=== PATIENT | female | born 1970 | race Caucasian/White ===

== ENCOUNTER 2017-03-18 05:51 | Emergency (ER) | payer BC ==
[2017-03-18] MEDS ORDERED: 0.9 % SODIUM CHLORIDE 1000ML 1,000 ML IV ONE (05:55)
[2017-03-18] MEDS ORDERED: ONDANSETRON HCL IV 4 MG/2 ML VIAL IVP ONE (05:55)
[2017-03-18] MEDS ORDERED: PROMETHAZINE HCL 25 MG in 0.9 % SODIUM CHLORIDE 100ML 50 ML IVP ONE (06:06)
[2017-03-18 06:08] LABS: BASO % 0.2 % (0-6); HEMATOCRIT 46.6 % (35.0-47.0); HEMOGLOBIN 15.6 gm/dl (11.6-16.0); LYMPH % 13.2 % (16-45); MEAN CORPUSCULAR HGB CONC 33.5 g/dl (32-36); MEAN PLATELET VOLUME 8.5 fl (7.4-10.4); MONO % 9.6 % (0-9); PLATELET COUNT 412 K/uL (130-400); RED BLOOD COUNT 5.68 M/uL (3.80-5.40); RED CELL DISTRIBUTION WIDTH 13.5 % (11.5-14.5); WHITE BLOOD COUNT W/O DIFF 8.2 K/uL (4.2-12.2)
[2017-03-18 06:09] LABS: MEAN CORPUSCULAR HEMOGLOBIN 27.4 pg (27-33)
[2017-03-18] MEDS ORDERED: KETOROLAC 30 MG/ML VIAL IVP ONE (06:09)
--- NOTE | 2017-03-18 06:12 | Emergency Department Record ---
History of Present Illness - General Chief complaint: Nausea, Vomiting, Diarrhea Stated complaint: VOMITING Time Seen by Provider: 03/18/17 06:05 Source: Patient Limitations: No limitations - History of Present Illness Initial comments: 46 yo female presents to ED with a CC of nausea and vomiting symptoms for the past 2-3 days. Patient denies fevers or abdominal pain symptoms, but reports numerous family members with similar symptoms. Patient denies loose stools or blood in the stool. Patient reports history of fribromyalgia and chronic back pain at her baseline. MD complaint: Nausea, Vomiting Onset/Timin -: Days(s) Associated Abdominal Pain: No Severity: Moderate Quality: Aching Consistency: Constant Improves with: None Worsens with: Vomiting Associated Symptoms: Denies other symptoms - Related Data Home Medications Medication Instructions Recorded Confirmed Last Taken Chlorthalidone 25 mg PO DAILY 10/12/14 03/18/17 03/16/17 Omeprazole/Sodium Bicarbonate 1 each PO DAILY 10/12/14 03/18/17 03/17/17 [Zegerid 40 mg Capsule] Ergocalciferol (Vitamin D2) 2,000 unit PO QD tab 12/03/16 03/18/17 03/16/17 [Vitamin D2] Potassium Gluconate [Potassium] 99 mg PO DAILY tab 12/03/16 03/18/17 03/16/17 Previous Rx's Medication Instructions Recorded Promethazine HCl [Phenergan] 25 mg PO Q6H PRN #20 tablet 03/18/17 Allergies Allergy/AdvReac Type Severity Reaction Status Date / Time baclofen [BACLOFEN] Allergy Unknown RASH Unverified 12/03/16 08:43 morphine [MORPHINE] Allergy Unknown MIGRAINES Unverified 12/03/16 08:43 Review of Systems Constitutional: Denies: Chills, Fever, Malaise, Night sweats Eyes: Denies: Eye discharge, Eye pain ENT: Denies: Congestion, Ear pain Respiratory: Denies: Cough, Dyspnea Cardiovascular: Denies: Chest pain, Dyspnea on exertion Endocrine: Denies: Fatigue, Heat or cold intolerance Gastrointestinal: Reports: Nausea, Vomiting. Denies: Abdominal pain Genitourinary: Denies: Frequency, Incontinence, Retention Musculoskeletal: Reports: Back pain, Myalgia. Denies: Arthralgia Skin: Denies: Bruising, Change in color Neurological: Reports: Headache. Denies: Abnormal gait, Confusion, Seizure Psychiatric: Denies: Anxiety Hematological/Lymphatic: Denies: Anemia, Blood Clots Past Medical History - SOCIAL HISTORY Smoking Status: Never smoker Alcohol Use: None Drug Use: None - RESPIRATORY Hx Respiratory Disorders: No - CARDIOVASCULAR Hx Cardio Disorders: Yes Hx Hypertension: Yes - NEURO Hx Neuro Disorders: No - GI Hx GI Disorders: No - Hx Genitourinary Disorders: No - ENDOCRINE Hx Endocrine Disorders: No - MUSCULOSKELETAL Hx Musculoskeletal Disorders: Yes Hx Fibromyalgia: Yes - PSYCH Hx Psych Problems: No - HEMATOLOGY/ONCOLOGY Hx Hematology/Oncology Disorders: No Family Medical History Any Significant Family History?: Yes Hx Diabetes: Father Hx HTN: Father, Mother Physical Exam - General General Appearance: Alert, Oriented x3, Cooperative Limitations: No limitations - Head Head exam: Atraumatic, Normocephalic, Normal inspection Head exam detail: negative: Abrasion, Contusion, Pinon's sign, General tenderness, Hematoma, Laceration - Eye Eye exam: Normal appearance. negative: Conjunctival injection, Periorbital swelling, Periorbital tenderness, Scleral icterus - ENT ENT exam: Mucous membranes dry Ear exam: negative: Auricular hematoma, Auricular trauma Nasal Exam: negative: Active bleeding, Discharge, Dried blood, Foreign body Mouth exam: negative: Drooling, Laceration, Muffled voice, Tongue elevation - Neck Neck exam: Normal inspection. negative: Meningismus, Tenderness - Respiratory Respiratory exam: Normal lung sounds bilaterally. negative: Rales, Respiratory distress, Rhonchi, Stridor - Cardiovascular Cardiovascular Exam: Normal rhythm, Normal heart sounds, Tachycardia - GI/Abdominal GI/Abdominal exam: Soft. negative: Rebound, Rigid, Tenderness - Rectal Rectal exam: Deferred - exam: Deferred - Extremities Extremities exam: Normal inspection. negative: Calf tenderness, Pedal edema, Tenderness - Back Back exam: Denies: CVA tenderness (R), CVA tenderness (L) - Neurological Neurological exam: Alert, Normal gait, Oriented X3 - Psychiatric Psychiatric exam: Normal affect, Normal mood - Skin Skin exam: Normal color. negative: Abrasion Type of lesion: negative: abrasion Course - Reevaluation(s) Reevaluation #1: 03/18/17 06:43 Labs reviewed and are grossly unremarkable for an acute process. Stool studies are pending at this time. Case was discussed with oncoming provider, will assume care and disposition at this time. Medical Decision Making - Lab Data Result diagrams: 03/18/17 05:58 03/18/17 05:58 Disposition Disposition: Discharge Clinical Impression: Nausea & vomiting Qualifiers: Vomiting type: unspecified Vomiting Intractability: non-intractable Qualified Code(s): R11.2 - Nausea with vomiting, unspecified Disposition: Home, Self-Care Condition: (2) Stable Instructions: Acute Nausea and Vomiting (ED) Additional Instructions: Return to ED if your symptoms worsen or if you have any concerns. Follow-up with your family doctor in 305 days as directed. Phenergan as directed. Prescriptions: Promethazine HCl [Phenergan] 25 mg PO Q6H PRN #20 tablet PRN Reason: Nausea/Vomiting Forms: Patient Portal Access
[2017-03-18] MEDS ORDERED: 0.9 % SODIUM CHLORIDE 1000ML 1,000 ML IV SCH (06:15)
[2017-03-18 06:18] LABS: ANION GAP 10.7 (7-16); BLOOD UREA NITROGEN 17 mg/dL (7-17); CARBON DIOXIDE 24.3 mmol/L (22-30); CREATININE 0.8 mg/dL (0.52-1.04); EST GLOMERULAR FILTRATION RATE > 60 ml/min; GLUCOSE,RANDOM 105 mg/dL (70-110)
[2017-03-18 06:38] LABS: ALBUMIN 4.1 gm/dL (3.5-5.0); BILIRUBIN,TOTAL 0.76 mg/dL (0.2-1.3); TOTAL PROTEIN 7.4 gm/dL (6.3-8.2)
[2017-03-18] MEDS ORDERED: 0.9 % SODIUM CHLORIDE 1,000 ML BAG IV ONE (08:40)
[2017-03-18] MEDS ORDERED: ONDANSETRON 4 MG ODT TABLET SL ONE (08:41)
== END 2017-03-18 10:26 | disposition home or self-care (01) ==
LOC: ER 05:51
DX: R11.2 Nausea with vomiting, unspecified (principal); R19.7 Diarrhea, unspecified; R51 Headache; R53.1 Weakness
CPT/HCPCS: 99284 ×2; 96374; 96375; 96361; 83690; 85025; 80076; 80048; 89055; 87493; J1885; J2405; J2550; J7030

== ENCOUNTER 2019-01-25 20:44 | Emergency (ER) | payer BC ==
--- NOTE | 2019-01-25 20:55 | Emergency Department Record ---
History of Present Illness - General Stated Complaint: NISHANT Time Seen by Provider: 01/25/19 20:49 Source: Patient - History of Present Illness Initial Comments: The patient has been coughing since yesterday. Her sever coughing has casued her throat to feel irritated from coughing. She denies fevers, chills, chest pain, nausea vomiting diarrhea or abdominal pain. - Related Data Home Medications Medication Instructions Recorded Confirmed Last Taken Fluoxetine HCl 20 mg PO DAILY 01/25/19 01/25/19 Unknown Lorazepam [Ativan] 0.5 mg PO DAILY PRN 01/25/19 01/25/19 Unknown Multivitamin [Multi-Vitamin Daily] 1 each PO DAILY 01/25/19 01/25/19 Unknown Previous Rx's Medication Instructions Recorded Prednisone [Prednisone 20Mg] 20 mg PO DAILY #20 tab 01/25/19 Promethazine HCl/Codeine 5 - 10 ml PO .AT BEDTIME PRN #118 01/25/19 [Phenergan W/Codeine] ml Allergies Allergy/AdvReac Type Severity Reaction Status Date / Time baclofen [BACLOFEN] Allergy Unknown RASH Verified 01/25/19 21:26 morphine [MORPHINE] Allergy Unknown MIGRAINES Verified 01/25/19 21:26 Review of Systems Reviewed: No additional complaints except as noted below Constitutional: Reports: As per HPI. Denies: Chills, Fever, Malaise, Night sweats, Weakness, Weight change Eyes: Reports: As per HPI. Denies: Eye discharge, Eye pain, Photophobia, Vision change ENT: Reports: As per HPI. Denies: Congestion, Dental pain, Ear pain, Epistaxis , Hearing loss, Throat pain Respiratory: Reports: As per HPI. Denies: Cough, Dyspnea, Hemoptysis, Stridor, Wheezes Cardiovascular: Reports: As per HPI. Denies: Arrhythmia, Chest pain, Dyspnea on exertion, Edema, Murmurs, Orthopnea, Palpitations, Paroxysmal nocturnal dyspnea, Rheumatic Fever, Syncope Endocrine: Reports: As per HPI. Denies: Fatigue, Heat or cold intolerance, Polydipsia, Polyuria Gastrointestinal: Reports: As per HPI. Denies: Abdominal pain, Constipation, Diarrhea, Hematemesis, Hematochezia, Melena, Nausea, Vomiting Genitourinary: Reports: As per HPI. Denies: Abnormal menses, Discharge, Dyspareunia, Dysuria, Frequency, Hematuria, Incontinence, Retention, Urgency Musculoskeletal: Reports: As per HPI. Denies: Arthralgia, Back pain, Gout, Joint swelling, Myalgia, Neck pain Skin: Reports: As per HPI. Denies: Bruising, Change in color, Change in hair/ nails, Lesions, Pruritus, Rash Neurological: Reports: As per HPI. Denies: Abnormal gait, Confusion, Headache, Numbness, Paresthesias, Seizure, Tingling, Tremors, Vertigo, Weakness Psychiatric: Reports: As per HPI. Denies: Anxiety, Auditory hallucinations, Depression, Homicidal thoughts, Suicidal thoughts, Visual hallucinations Hematological/Lymphatic: Reports: As per HPI. Denies: Anemia, Blood Clots, Easy bleeding, Easy bruising, Swollen glands Past Medical History - SOCIAL HISTORY Smoking Status: Never smoker Drug Use: None - RESPIRATORY Hx Respiratory Disorders: No - CARDIOVASCULAR Hx Cardio Disorders: Yes Hx Hypertension: Yes - NEURO Hx Neuro Disorders: No - GI Hx GI Disorders: No - Hx Genitourinary Disorders: No - ENDOCRINE Hx Endocrine Disorders: No - MUSCULOSKELETAL Hx Musculoskeletal Disorders: Yes Hx Fibromyalgia: Yes - PSYCH Hx Psych Problems: No - HEMATOLOGY/ONCOLOGY Hx Hematology/Oncology Disorders: No Family Medical History Hx Diabetes: Father Hx HTN: Father, Mother Physical Exam - General General Appearance: Alert, Oriented x3, Cooperative, Moderate distress (croupy sounding coughing spasms) - Head Head exam: Normal inspection - Eye Eye exam: Normal appearance, PERRL, EOMI. negative: Conjunctival injection, Nystagmus Pupils: Normal accommodation - ENT ENT exam: Normal exam, Mucous membranes moist, Normal external ear exam, Normal orophraynx, TM's normal bilaterally Ear exam: Normal external inspection. negative: External canal tenderness Nasal Exam: Normal inspection. negative: Discharge, Sinus tenderness Mouth exam: Normal external inspection, Tongue normal Teeth exam: Normal inspection. negative: Dental caries Throat exam: Normal inspection. negative: Tonsillar erythema, Tonsillar exudate - Neck Neck exam: Normal inspection, Full ROM. negative: Lymphadenopathy, Meningismus , Tenderness - Respiratory Respiratory exam: Normal lung sounds bilaterally, Other (barky coughing spasms of upper airway; lungs clear). negative: Accessory muscle use, Chest wall tenderness, Respiratory distress - Cardiovascular Cardiovascular Exam: Regular rate, Normal rhythm, Normal heart sounds - GI/Abdominal GI/Abdominal exam: Soft, Normal bowel sounds. negative: Tenderness - Rectal Rectal exam: Deferred - exam: Deferred - Extremities Extremities exam: Normal inspection, Full ROM, Normal capillary refill. negative: Calf tenderness, Pedal edema, Tenderness - Back Back exam: Reports: Normal inspection, Full ROM. Denies: CVA tenderness (R), CVA tenderness (L), Muscle spasm, Rash noted, Tenderness - Neurological Neurological exam: Alert, CN II-XII intact, Normal gait, Oriented X3, Reflexes normal. negative: Motor sensory deficit - Psychiatric Psychiatric exam: Normal affect, Normal mood - Skin Skin exam: Dry, Intact, Normal color, Warm Course Vital Signs 01/25/19 20:48 Temperature 98.7 F Pulse Rate [ 120 H Pulse Ox Probe] Respiratory 32 H Rate Blood Pressure 174/105 [Left Arm] Pulse Ox 99 - Reevaluation(s) Reevaluation #1: Patient is worked up from the coughing discomfort and is anxious. Ativan 0.5 mg IV ordered. 01/25/19 21:07 Reevaluation #2: Patient is feeling much better. She needs two days off work. She states she has had croup before and had a steroid taper. Also her CT finding of a 4.5 retroperitoneal mass is and OLD finding from 2 years ago. She had had 4 follow up scans and a biopsy which showed a benign mass. 01/25/19 23:31 Medical Decision Making - Management Options MDM Management: No Additional Work-up Planned - Data Complexity MDM Data: Labs Ordered and/or Reviewed, X-Ray Ordered and/or Reviewed (CTA chest shows a 4.5 cm mass retroperitoneal area which was recommended to follow with MRI.(Patient has already had this worked up). CT Neck shows steepling of the subglottic trachea typical for croup. ) - Lab Data Result diagrams: 01/25/19 20:52 01/25/19 20:52 Disposition Disposition: Discharge Clinical Impression: Croup syndrome Disposition: Home, Self-Care Return To Work/School Note Provided: Yes Condition: (2) Stable Instructions: Croup (ED) Additional Instructions: Off work for 2 days, 4-4 and 4-5-19. Take prednisone taper as instructed: 3 pills daily for 3 days, 2 pills daily for 3 days, 1 pill daily for 3 days, then 1/2 pill daily for 4 days and stop. Phenergan with codeine as directed as needed for coughing. Take an extra dose of your potassium tomorrow. Follow up with your PCP in office as needed. Prescriptions: Prednisone [Prednisone 20Mg] 20 mg PO DAILY #20 tab Promethazine HCl/Codeine [Phenergan W/Codeine] 5 - 10 ml PO .AT BEDTIME PRN # 118 ml PRN Reason: Cough Quality - Quality Measures Quality Measures: N/A - Blood Pressure Screening Does Patient Have Any of the Following: No Blood Pressure Classification: Normal BP Reading Systolic Measurement: 117 Diastolic Measurement: 66 Screening for High Blood Pressure: < Normal BP, F/U Not Required > [G8774]
[2019-01-25] MEDS ORDERED: METHYLPREDNISOLONE PF 125MG/VIAL IVP ONE (20:56)
[2019-01-25] MEDS ORDERED: IPRATROPIUM/ALBUTEROL (0.5MG/3MG) NEB INH ONE (20:56)
[2019-01-25] MEDS ORDERED: 0.9 % SODIUM CHLORIDE 1,000 ML BAG IV ONE (20:58)
[2019-01-25] MEDS ORDERED: PROMETHAZINE W/CODEINE 10ML UD PO ONE (20:58)
[2019-01-25] MEDS ORDERED: LORAZEPAM 2 MG/ML VIAL IV ONE (21:06)
[2019-01-25 21:11] LABS: BASO % 0.4 % (0-6); EOS % 0.7 % (0-6); GRAN % 46.6 % (47-80); HEMATOCRIT 40.6 % (35.0-47.0); LYMPH % 42.8 % (16-45); MEAN CELL VOLUME 81.2 fl (81-97); MEAN PLATELET VOLUME 8.1 fl (7.4-10.4); MONO % 9.5 % (0-9); PLATELET COUNT 458 K/uL (130-400); RED CELL DISTRIBUTION WIDTH 14.1 % (11.5-14.5); WHITE BLOOD COUNT W/O DIFF 8.1 K/uL (4.2-12.2)
[2019-01-25 21:24] LABS: BLOOD UREA NITROGEN 12 mg/dL (6-20); CREATININE 0.6 mg/dL (0.5-0.9); EST GLOMERULAR FILTRATION RATE > 60 mL/min
[2019-01-25 21:25] LABS: TOTAL PROTEIN 7.6 g/dL (6.6-8.7)
[2019-01-25 21:27] LABS: GLUCOSE,RANDOM 153 mg/dL (74-109)
[2019-01-25 21:30] LABS: ALB/GLOB RATIO 1.4 (1.1-1.8); ALBUMIN 4.4 g/dL (4.0-5.0); ALKALINE PHOSPHATASE 82 U/L (35-104); ALT/SGPT 11 U/L (<33); AST/SGOT 17 U/L (10.0-35.0)
[2019-01-25 21:32] LABS: NTpro B-NATRIURETIC PEPTIDE 61.01 pg/mL (<125)
[2019-01-25] MEDS ORDERED: POTASSIUM CHLORIDE 20 MEQ TABLET PO ONE ×2 (21:39→23:45)
--- NOTE | 2019-01-27 13:33 | CT ANGIOGRAM REPORT ---
EXAM: CTA OF THE CHEST HISTORY: DIFFICULTY IN BREATHING. TECHNIQUE: After the intravenous administration of 76 ml of Omnipaque 350 axial images are obtained from the thoracic inlet to the lung bases. Additional maximum intensity projection reformatted images were performed. FINDINGS: There is no evidence of acute pulmonary embolism. The upper mediastinum is unremarkable. There is no adenopathy. The heart is normal. The thoracic aorta is normal. The pulmonary parenchyma demonstrates no evidence of soft tissue mass or infiltrate. There are no effusions. The upper abdomen is abnormal. There is a soft tissue mass in the high aortocaval space, just cephalad to the pancreatic head. This mass measures approximately 4.5 x 4.5 cm in diameter and abuts segment four of the liver, but does not appear to be hepatic in origin. IMPRESSION: INCIDENTAL DETECTION OF AN INTRAABDOMINAL MASS. THE LESION APPEARS TO REPRESENT AN ENLARGED LYMPH NODE. LYMPHOMA IS TO BE EXCLUDED. JOB NUMBER: [id number] MTDD
--- NOTE | 2019-01-27 13:37 | RADIOLOGY REPORT ---
EXAM: SOFT TISSUES OF THE NECK HISTORY: COUGHING AND SHORTNESS OF BREATH. TECHNIQUE: AP and lateral views of the soft tissues of the neck are obtained. FINDINGS: There is diffuse stippling of the subglottic airway. There is no evidence of soft tissue mass. The epiglottis appears normal. The precervical soft tissues are normal. IMPRESSION: FINDINGS OF CROUP. JOB NUMBER: [id number] MTDD
== END 2019-01-26 00:04 | disposition home or self-care (01) ==
LOC: ER 20:44
DX: J05.0 Acute obstructive laryngitis [croup] (principal); E87.6 Hypokalemia; R06.00 Dyspnea, unspecified; R79.89 Other specified abnormal findings of blood chemistry; I10 Essential (primary) hypertension
CPT/HCPCS: 99284 ×2; 96374; 96375; 85025; 80053; 85379; 83880; 70360; 71275; 94640; Q9967; J2060; J2930

== ENCOUNTER 2019-08-27 15:12 | Emergency (ER) | payer BC ==
--- NOTE | 2019-08-27 15:54 | Emergency Department Record ---
History of Present Illness - General Chief Complaint: Laceration(s) Stated Complaint: LAC,RT INDEX Time Seen by Provider: 08/27/19 15:21 Source: Patient Mode of Arrival: Ambulatory Limitations: No limitations - History of Present Illness Initial Commments: The patient cut her R index finger on a broke glass 30 minutes ago. She denies any numbness or tingling and her Td is UTD. Onset/Timin -: Minutes(s) Place: Home Context: Accidental - Regulo Coma Scale Eye Response: (4) Open spontaneously Motor Response: (6) Obeys commands Verbal Response: (5) Oriented Roland Total: 15 - Related Data Patient Tetanus UTD (within 5 yrs): Yes Home Medications Medication Instructions Recorded Confirmed Last Taken Celecoxib [Celebrex] 200 mg PO BID 08/27/19 08/27/19 1 Day Ago ~08/26/19 Allergies Allergy/AdvReac Type Severity Reaction Status Date / Time baclofen [BACLOFEN] Allergy Unknown RASH Verified 08/27/19 15:21 morphine [MORPHINE] Allergy Unknown MIGRAINES Verified 08/27/19 15:21 atorvastatin [From Lipitor] AdvReac MUSCLE PAIN Verified 08/27/19 15:21 Travel Screening - Travel/Exposure Within Last 30 Days Have you traveled within the last 30 days?: No - Travel/Exposure Within Last Year Have you traveled outside the [place] in the last year?: No - Additonal Travel Details Have you been exposed to anyone with a communicable illness?: No - Travel Symptoms Symptom Screening: None Review of Systems Constitutional: Denies: Chills, Fever Past Medical History - SOCIAL HISTORY Smoking Status: Never smoker Alcohol Use: Rare Drug Use: None - RESPIRATORY Hx Respiratory Disorders: No - CARDIOVASCULAR Hx Cardio Disorders: Yes Hx Hypertension: Yes - NEURO Hx Neuro Disorders: No - GI Hx GI Disorders: No - Hx Genitourinary Disorders: No - ENDOCRINE Hx Endocrine Disorders: No - MUSCULOSKELETAL Hx Musculoskeletal Disorders: Yes Hx Fibromyalgia: Yes - PSYCH Hx Psych Problems: No - HEMATOLOGY/ONCOLOGY Hx Hematology/Oncology Disorders: No Family Medical History Any Significant Family History?: Yes Hx Diabetes: Father Hx HTN: Father, Mother Physical Exam - General General Appearance: Alert, Cooperative, No acute distress - Head Head exam: Atraumatic - Extremities Extremities exam: negative: Normal inspection (There is a 1.2 cm lac to the dorsal medial R 2nd finger midway between the MCP and PIP joint. The finger extension is 5/5 and sensation is normal distal to the lac.) Course Vital Signs 08/27/19 15:22 Temperature 97.8 F Pulse Rate [ 89 Pulse Ox Probe] Respiratory 16 Rate Blood Pressure 142/111 [Left Arm] Pulse Ox 97 - Reevaluation(s) Reevaluation #1: Procedure note: The R 2nd finger was anesth. with 1 cc Lido 2%. The lac was cleansed with betadine and lavaged with sterile saline. The wound was explored a nd was very superficial and no FB was found. The lac was then closed with 3 4.0 nylon sutures. There were no complications. 08/27/19 15:57 Disposition Disposition: Discharge Clinical Impression: Laceration of finger Qualifiers: Encounter type: initial encounter Finger: index finger Damage to nail status: without damage Foreign body presence: without foreign body Laterality: right Qualified Code(s): S61.210A - Laceration without foreign body of right index finger without damage to nail, initial encounter Disposition: Home, Self-Care Condition: (2) Stable Instructions: Laceration (ED) Additional Instructions: Keep dry for 2 days and return for signs of infection. No soaking or swimming. Have the sutures removed in 10 days. Forms: Patient Portal Access Time of Disposition: 15:56 Quality - Quality Measures Quality Measures: N/A - Blood Pressure Screening View Details: Yes Does Patient Have Any of the Following: No Blood Pressure Classification: Pre-Hypertensive BP Reading Systolic Measurement: 132 Diastolic Measurement: 84 Screening for High Blood Pressure: < Pre-Hypertensive BP, F/U Documented > [G8950] Pre-Hypertensive Follow-up Interventions: Referral to alternative/primary care provider.
== END 2019-08-27 16:07 | disposition home or self-care (01) ==
LOC: ER 15:12
DX: S61.210A Laceration without foreign body of right index finger without damage to nail, initial encounter (principal); W25.XXXA Contact with sharp glass, initial encounter; Y93.G1 Activity, food preparation and clean up; Y92.000 Kitchen of unspecified non-institutional (private) residence as the place of occurrence of the external cause
CPT/HCPCS: 12001; 99283